=== PATIENT | female | born 1945 | race Caucasian/White ===

== ENCOUNTER 2017-06-19 10:56 | Outpatient (CLI) ==
--- NOTE | 2017-06-19 11:57 | DI ---
EXAM: Right shoulder three view HISTORY: Shoulder pain COMPARISON: None FINDINGS: The bones are normal. The glenohumeral joint and acromioclavicular joint are normal. No f ocal soft tissue abnormality. There is left-sided chest port terminating in superior vena cava, inco mpletely imaged IMPERSSION: Normal examination right shoulder.
== END 2017-06-19 10:57 | disposition home or self-care (01) ==
LOC: RAD 10:56
PROVIDERS: ATTEND Family Medicine
DX: M25.511 Pain in right shoulder (principal)

== ENCOUNTER 2017-10-29 09:30 | Outpatient (CLI) ==
--- NOTE | 2017-10-29 10:11 | DI ---
EXAM: Three views of the lumbar spine. History: Lower back pain. Findings: Atherosclerotic vascular calcifications. No acute fracture or subluxation. Moderate to s evere multilevel degenerative disc space narrowing with endplate sclerosis and osteophyte formation. Severe facet hypertrophy within lower lumbar spine. Impression: No acute osseous abnormality. Moderate to severe degenerative changes.
== END 2017-10-29 09:31 | disposition home or self-care (01) ==
LOC: RAD 09:30
PROVIDERS: ATTEND Family Medicine
DX: M15.9 Polyosteoarthritis, unspecified (principal); M54.5 Low back pain; G89.29 Other chronic pain

== ENCOUNTER 2017-11-17 07:08 | Day surgery (SDC) ==
[2017-11-17] MEDS ORDERED: LIDOCAINE 1% 20 ML MDV ID STA (08:18)
[2017-11-17] MEDS ORDERED: DIPRIVAN 20 ML VIAL IVP ONE (09:23)
[2017-11-17] MEDS ORDERED: VERSED ONE (09:23)
[2017-11-17 13:42] VITALS: BP 146/77; TEMP 97.6
--- NOTE | 2017-11-18 09:01 | OP ---
INDICATIONS FOR PROCEDURE: 72 year old female presents for colonoscopy exam. She has a past history of adenomatous polyps with last colonoscopy three years ago and her father had colon cancer at age 63. MEDICATIONS: SEE ANESTHESIA NOTES. PROCEDURE: COLONOSCOPY. REPORT: The risks, benefits, alternatives and limitations were discussed in detail with the patient. Informed consent was obtained. After adequate sedation was achieved, a digital rectal exam revealed good tone, no masses. The colonoscope was introduced into the rectum and advanced under direct visual guidance to the cecum. The cecum was identified by the appendiceal orifice and IC valve. I then slowly withdrew the scope in circumferential manner and examined the mucosa quite carefully. I looked on the proximal and distal sides of the folds and flexures as best as possible. I was able to retroflex the scope in the right colon and the left colon to increase visualization. In the cecum there are three small AVM's. In the sigmoid there are scattered small mouth diverticuli. No other abnormalities noted including on retroflex view of the anal canal. The prep was adequate. The withdraw time was 11 minutes and 3 seconds. The patient tolerated the procedure well with stable vital signs and pulse oximetry throughout. IMPRESSION: 1. Diverticulosis 2. Three cecal AVM's RECOMMENDATIONS: 1. High fiber diet 2. Office visit as needed 3. Colonoscopy examination again in 5 years if she is clinically well or sooner if there are signs or symptoms to indicate otherwise. CC: Dr. Darrell NUNEZ
== END 2017-11-17 11:05 | disposition home or self-care (01) ==
LOC: SURG 07:08
PROVIDERS: ATTEND Internal Medicine Gastroenterology
DX: Z86.010 Personal history of colon polyps (principal); Z80.0 Family history of malignant neoplasm of digestive organs; K57.30 Diverticulosis of large intestine without perforation or abscess without bleeding; Q27.33 Arteriovenous malformation of digestive system vessel

== ENCOUNTER 2018-01-18 14:16 | Outpatient (CLI) ==
--- NOTE | 2018-01-18 15:42 | DI ---
EXAM: Radiographs, right knee HISTORY: Acute right knee pain. COMPARISON: 12/14/2013. TECHNIQUE: Four views. FINDINGS: Transverse, minimally-displaced fracture through the mid pole of the patella noted. Anter ior soft tissue swelling and joint effusion are also present. No dislocation identified. Mild osteo arthritis noted throughout the knee. IMPRESSION: Minimally-displaced patellar fracture.
== END 2018-01-18 14:17 | disposition home or self-care (01) ==
LOC: RAD 14:16
PROVIDERS: ATTEND Family Medicine
DX: M25.561 Pain in right knee (principal)

== ENCOUNTER 2018-02-18 14:51 | Emergency (ER) ==
[2018-02-18 14:56] VITALS: TEMP 97.8; BMI 34.7
--- NOTE | 2018-02-18 16:18 | ED.PDOC ---
General ED Provider: Dr. MARLEN GARCIA Chief Complaint: Dizziness Stated Complaint: Developed dizziness last evening. Under considerable stress with her late husbands illness. last evening. This AM awakened and after a short time developed recurrent dizziness described as light headedness. States better now. Time Seen by Physician: 15:00 Mode of Arrival: Wheelchair Information Source: Patient Primary Care Provider: FRITZ CANNON Nursing and Triage Documentation Reviewed and Agree: Yes Reviewed sepsis parameters & appropriate labs ordered?: Yes System Inflammatory Response Syndrome: Not Applicable Sepsis Protocol: For patient's 13 years and over: Temp is 96.8 and below OR 101 and greater Pulse >90 BPM Resp >20/minute Acutely Altered Mental Status Are patient's symptoms suggestive of a new infection, such as: -Pneumonia -Skin, Soft Tissue -Endocarditis -UTI -Bone, Joint Infection -Implantable Device -Acute Abdominal Infection -Wound Infection -Meningitis -Blood Stream Catheter Infection -Unknown System Inflammatory Response Syndrome: Not Applicable Neurological Complaint Exam - Dizziness Complaint/Exam Onset: Sudden Duration: 12 hrs intermittently Symptoms Are: Still present (lessened and resolving.) Timing: Intermittent Episodes Lasting: Minutes Initial Severity: Moderate Current Severity: Mild Character: Reports: Head spinning, Lightheaded, Weak, Dizzy Aggravating: Reports: None Alleviating: Reports: Rest Associated Signs and Symptoms: Reports: Nausea. Denies: Palpitations, Unsteady gait, GI blood loss, Visual changes, Decreased oral intake, Change in medication , Change in diet, Loss of balance Cardiac Risk Factors: Reports: None Related Surgical History: Reports: None JVD Present: No Carotid Bruit Present: No Nystagmus Present: No Gag Reflex Present: Yes Meningeal Signs Positive: No Focal Weakness: Present: None Focal Sensory Loss: Present: None Gait: Normal [id number]: Normal Findings Romberg Test Positive: No Heel to Toe Normal: Yes [place]-Hallpike Test Positive: Yes Differential Diagnoses: Anxiety, Labyrinthitis Review of Systems - Review Of Systems Constitutional: Reports: Weakness Eyes: Reports: No symptoms Ears, Nose, Mouth, Throat: Reports: No symptoms Respiratory: Reports: No symptoms Cardiac: Reports: No symptoms, Lightheadedness GI: Reports: No symptoms : Reports: No symptoms Musculoskeletal: Reports: No symptoms Skin: Reports: No symptoms Neurological: Reports: No symptoms, Other (dizziness) Endocrine: Reports: No symptoms Hematologic/Lymphatic: Reports: No symptoms All Other Systems: Reviewed and Negative Past Medical History - Past Medical History Previously Healthy: Yes Endocrine: Reports: None Cardiovascular: Reports: None Respiratory: Reports: None Hematological: Reports: None Gastrointestinal: Reports: None Genitourinary: Reports: None Neuro/Psych: Reports: None Musculoskeletal: Reports: None Cancer: Reports: None Last Menstrual Period: n/a - Surgical History General Surgical History: Reports: None - Family History Family History: Reports: None - Social History Smoking Status: Former smoker Hx Substance Use: No Alcohol Screening: None Physical Exam - Physical Exam Appearance: Well-appearing, Obese Ill-appearing: Mild Pain Distress: None Eyes: DEWAYNE, EOMI, Conjunctiva clear ENT: Ears normal, Nose normal, Oropharynx normal Neck: Supple Respiratory: Airway patent, Breath sounds clear, Breath sounds equal Cardiovascular: RRR, Pulses normal, No rub, No murmur GI/: Soft, Nontender, No masses Musculoskeletal: Normal strength, ROM intact, No edema Skin: Warm, Dry, Normal color Neurological: Sensation intact, Alert, Oriented Psychiatric: Affect appropriate, Mood appropriate, Anxious Re-Evaluation - Re-Evaluation Time of Re-Evaluation: 18:30 Status: Improved Vital Signs Stable: Yes (BP improved) Appearance: NAD Lungs: Clear Skin: Warm and Dry Neuro: Alert and Oriented X3 CV: RRR Critical Care Note - Critical Care Note Total Time (mins): 0 Course - Course Hematology/Chemistry: 02/18/18 15:58 02/18/18 15:58 Orders, Labs, Meds: Lab Review 02/18/18 02/18/18 02/18/18 15:58 15:58 15:58 WBC 9.38 RBC 4.34 Hgb 13.9 Hct 39.6 MCV 91.2 MCH 32.0 H MCHC 35.1 RDW Coeff of Marcia 12.3 Plt Count 164 Immature Gran % (Auto) 0.3 Neut % (Auto) 72.4 Lymph % (Auto) 21.7 [place] % (Auto) 4.7 Eos % (Auto) 0.6 Baso % (Auto) 0.3 Immature Gran # (Auto) 0.0 Neut # (Auto) 6.8 Lymph # (Auto) 2.0 [place] # (Auto) 0.4 Eos # (Auto) 0.1 Baso # (Auto) 0.0 Sodium 142 Potassium 3.9 Chloride 104 Carbon Dioxide 29 Anion Gap 12.9 BUN 11 Creatinine 0.64 Estimated GFR (MDRD) 90.00 BUN/Creatinine Ratio 17.18 Glucose 148 H Calcium 9.4 Magnesium 1.9 Total Bilirubin 0.4 AST 28 ALT 14 Alkaline Phosphatase 94 Total Creatine Kinase 41 Troponin I < 0.0100 Total Protein 6.7 Albumin 3.9 Globulin 2.8 Albumin/Globulin Ratio 1.39 Urine Color Urine Clarity Urine pH Ur Specific [place] Urine Protein Urine Glucose (UA) Urine Ketones Urine Blood Urine Nitrite Urine Bilirubin Urine Urobilinogen Ur Leukocyte Esterase Urine Microscopic WBC Ur Squamous Epith Cells 02/18/18 16:13 WBC RBC Hgb Hct MCV MCH MCHC RDW Coeff of [place] Plt Count Immature Gran % (Auto) Neut % (Auto) Lymph % (Auto) [place] % (Auto) Eos % (Auto) Baso % (Auto) Immature Gran # (Auto) Neut # (Auto) Lymph # (Auto) [place] # (Auto) Eos # (Auto) Baso # (Auto) Sodium Potassium Chloride Carbon Dioxide Anion Gap BUN Creatinine Estimated GFR (MDRD) BUN/Creatinine Ratio Glucose Calcium Magnesium Total Bilirubin AST ALT Alkaline Phosphatase Total Creatine Kinase Troponin I Total Protein Albumin Globulin Albumin/Globulin Ratio Urine Color Yellow Urine Clarity Clear Urine pH 7.0 Ur Specific [place] 1.015 Urine Protein Negative Urine Glucose (UA) Negative Urine Ketones Negative Urine Blood Negative Urine Nitrite Negative Urine Bilirubin Negative Urine Urobilinogen 0.2 Ur Leukocyte Esterase Trace Urine Microscopic WBC 0-2 Ur Squamous Epith Cells 0-2 Orders Category Date Time Status EKG-(ED ONLY) Stat CARDIO 02/18/18 15:34 Completed CBC W/ AUTO DIFF Stat LAB 02/18/18 15:58 Completed CMP [COMPREHENSIVE METABOLIC PANEL] Stat LAB 02/18/18 15:58 Completed CPK [CREATINE KINASE] Stat LAB 02/18/18 15:58 Completed MAGNESIUM Stat LAB 02/18/18 15:58 Completed TROPONIN I Stat LAB 02/18/18 15:58 Completed UA [URINALYSIS C & S IF INDICATED] Stat LAB 02/18/18 16:13 Completed CHEST, 2 VIEWS PA & LAT Stat RADS 02/18/18 15:[address] HEAD W/O CONTRAST Stat RADS 02/18/18 15:35 Completed Vital Signs: Temp Pulse Resp BP Pulse Ox 02/18/18 14:51 97.8 F 58 L 16 170/80 H 96 Departure - Departure Time of Disposition: 18:30 Disposition: HOME SELF-CARE Discharge Problem: Dizziness, Hypertension Instructions: Motion Sickness (ED), Hypertension (ED) Condition: Good Pt referred to PMD for follow-up: Yes IPMP verified?: No Additional Instructions: Monitor BP at Home Take all meds as directed Follow up PCP in 5-7 days Allergies/Adverse Reactions: Allergies No Known Allergies Allergy (Unverified 08/14/14 12:50) Home Medications: Ambulatory Orders Oxybutynin Chloride [Ditropan Xl] 1 tab PO BID 08/28/14
--- NOTE | 2018-02-18 16:36 | DI ---
EXAM: Two-view chest. HISTORY: Dizziness. COMPARISON: 11/08/2015 FINDINGS: PA and lateral views of the chest. LUNGS: The lung volumes are normal. There is a left-sided chest port. Clips are seen in the left sol e of the chest. There is no lobar consolidation or effusion. The pulmonary interstitium is normal. T here are no suspicious nodules. MEDIASTINUM: The heart size and pulmonary vasculature are within normal limits. The aorta is tortu ous and calcified. OSSEOUS STRUCTURES: The osseous structures show mild degenerative changes consistent with age. The so ft tissues are unremarkable. IMPRESSION: No acute pulmonary disease.
--- NOTE | 2018-02-18 16:37 | CT ---
EXAM: CT head without contrast HISTORY: Dizziness COMPARISON: None TECHNIQUE: Serial axial images of the brain were obtained from the skull base to the vertex without IV contrast. FINDINGS: The ventricles, cisterns and sulci demonstrate generalized volume loss. The rodriguez-white ma tter junction is maintained. There is scattered low attenuation throughout the periventricular white matter.No midline shift or mass is identified. There is no abnormal intra or extra-axial fluid loretta ection. The paranasal sinuses and mastoid air cells are clear. The osseous calvarium is intact. IMPRESSION: 1. Intracranial abnormality or hemorrhage. 2. Generalized volume loss with extensive low attenuation throughout the periventricular white matte r suggestive of microangiopathy. If further evaluation is clinically indicated, MRI may be obtained.
[2018-02-18] MEDS ORDERED: ZESTRIL PO STA (18:52)
[2018-02-18 19:46] VITALS: BP 190/90
== END 2018-02-18 20:31 | disposition home or self-care (01) ==
LOC: ED 14:51
DX: R42 Dizziness and giddiness (principal); I10 Essential (primary) hypertension; R53.1 Weakness
CPT/HCPCS: 36415; 80053; 81001; 82550; 83735; 84484; 85025; 93005; 93010; 99284

== ENCOUNTER 2022-02-15 16:20 | Inpatient (IN) ==
[2022-02-15] MEDS ORDERED: DUONEB NEB ONE (17:03)
[2022-02-15] MEDS ORDERED: SOLU-MEDROL 125 MG IVP ONE (17:03)
[2022-02-15] MEDS ORDERED: SODIUM CHLORIDE 500 ML IV STA (17:03)
[2022-02-15 17:31] LABS: BASOPHILS # (AUTO) 0.1 K/uL (0-0.2); BASOPHILS % (AUTO) 0.3 % (0.0-3.0); EOSINOPHILS # (AUTO) 0.2 K/ul (0.0-0.7); EOSINOPHILS % (AUTO) 1.3 % (0.0-7.0); HEMATOCRIT 36.4 % (37.0-47.0); HEMOGLOBIN 12.7 g/dl (12.0-16.0); IMMATURE GRANULOCYTE # (AUTO) 0.1 (0.0-1.0); IMMATURE GRANULOCYTE % (AUTO) 0.7 % (0.0-5.0); LYMPHOCYTES # (AUTO) 1.6 K/uL (0.60-3.4); MEAN CORPUSCULAR HEMOGLOBIN 30.5 pg (27.0-31.0); MEAN CORPUSCULAR HGB CONC 34.9 (31.8-35.4); MEAN CORPUSCULAR VOLUME 87.5 fl (81.0-99.0); MONOCYTES # (AUTO) 1.3 K/uL (0.4-2.0); NEUTROPHILS # (AUTO) 13.1 K/ul (2.0-6.9); NEUTROPHILS % (AUTO) 79.7 % (42.2-75.2); PLATELET COUNT 187 10^3/uL (140-440); RDW COEFFICIENT OF VARIATION 13.1 % (11.6-14.8); RED BLOOD COUNT 4.16 10^6/ul (4.20-5.40); WHITE BLOOD COUNT 16.46 K/ul (4.6-10.2)
--- NOTE | 2022-02-15 17:42 | CT ---
EXAM: CT scan chest without contrast HISTORY: Shortness by COMPARISON: None. FINDINGS: Helically acquired axial images obtained through the thorax utilizing 5-mm collimation. S agittal and coronal reconstructions were imaged and reviewed... There are bilateral breast implants. There is a left-sided chest port. The ascending aorta is ectatic measuring 3.4 cm. The heart is n ormal in size with coronary artery calcification. There is calcification of mitral valve.. There ar e subcentimeter pretracheal lymph nodes. There is atelectasis versus scarring within the inferior li ngular segment. Focus of ground-glass opacity medially within the left upper lobe which may represen t pneumonia. 2 mm subpleural nodule anteriorly at the left lung base. Right basilar atelectasis candido jessi pneumonia.. Small focus of ground-glass opacity posteriorly within the right upper lobe.. Peribr onchovascular thickening/infiltrate is noted bilaterally right greater than left suggesting infection . Scattered tree-in-bud configuration is seen in right upper lobe suggesting bronchiolitis. Bone wi ndows reveals no evidence of lytic or blastic lesions. IMPRESSION: Coronary ASVD. Findings suggest peribronchial pneumonia right greater than left. Tree-in-bud configuration right upper lobe. Ground-glass infiltrates in both upper lobes All CT scans are performed using dose optimization techniques as appropriate to the performed exam an d include at least one of the following: Automated exposure control, adjustment of the mA and/or kV according t o size, and the use of iterative reconstruction technique.
[2022-02-15 17:49] LABS: ALANINE AMINOTRANSFERASE 18.5 U/L (0-35); ALBUMIN 4.02 g/dL (3.5-5.0); ALKALINE PHOSPHATASE 127.2 U/L (53-141); BILIRUBIN,TOTAL 0.66 mg/dL (0.2-1.3); BLOOD UREA NITROGEN 20.1 mg/dL (7-17); CARBON DIOXIDE 23.7 mmol/L (22-30.0); CHLORIDE 99.4 mmol/L (98-107); CREATININE 0.97 mg/dL (0.60-1.30); GLUCOSE 146.4 mg/dL (74-106); POTASSIUM 3.59 mmol/L (3.5-5.1); SODIUM 132.4 mmol/L (134.5-145); TOTAL PROTEIN 7.17 g/dL (6.3-8.2)
[2022-02-15] MEDS ORDERED: ZITHROMAX PO ONE (17:54)
[2022-02-15] MEDS ORDERED: ROCEPHIN 1 GM/50 ML D5W 1 GM/50 ML BAG IV ONE (17:54)
[2022-02-15 18:00] LABS: MOLECULAR FLU A NEGATIVE BY NAAT (NEGATIVE); MOLECULAR FLU B NEGATIVE BY NAAT (NEGATIVE)
[2022-02-15 18:02] LABS: TROPONIN I < 0.012 ng/ml (0.0000-0.120)
[2022-02-15 18:54] LABS: ABG O2 HGB 93.3 % (95-100); ABG PH 7.48 (7.35-7.45); BEecf 1.1 (-2.0-3.0); COHb 1.8 (0.5-1.5); HCO3 24.6 (21-28); MetHb 1.3 (0-1.5); TCO2 25.6 (19-24); sO2 95.4 % (94-98); tHb 12.7 g/dl (11.7-17.4)
--- NOTE | 2022-02-15 19:58 | CT ---
Exam: CT angiography of the chest History: Pneumonia, shortness of breath Technique: [address] of the chest utilizing CT angiography protocol. Multiplanar and max imum intensity projection reformations were performed. FINDINGS: Technically adequate for evaluation of pulmonary arteries and aorta. There are no pulmona ry artery filling defects. Atherosclerotic calcification of the aorta without aneurysm or dissection . Bilateral hilar lymph node prominence. Lung windows show minor nodular infiltrates and some bronc hial wall thickening of the right lower lobe and right middle lobe and basilar left upper lobe. Foca l ground-glass infiltrate of the apical left upper lobe. Mediastinal lymph nodes are abundant but chaparro b pathologic by size. Bilateral breast prosthesis. No acute chest wall abnormality is seen. Impression: 1. No evidence of pulmonary artery thrombus 2. Right greater than left lung base nodular infiltrates and bronchial wall thickening. Also, a foc al left upper lobe ground-glass infiltrate. The findings favor pneumonitis. All CT scans are performed using dose optimization techniques as appropriate to the performed exam an d include at least one of the following: Automated exposure control, adjustment of the mA and/or kV according t o size, and the use of iterative reconstruction technique.
--- NOTE | 2022-02-15 20:54 | ED.PDOC ---
General ED Provider: Dr. ALDO SARABIA Chief Complaint: Cough Time Seen by Provider: 02/15/22 16:24 Mode of Arrival: Walk-In Information Source: Patient Primary Care Provider: FRITZ RAMÍREZ Sepsis Protocol: For patient's 13 years and over: Temp is 96.8 and below OR 101 and greater Pulse >90 BPM Resp >20/minute Acutely Altered Mental Status Are patient's symptoms suggestive of a new infection, such as: -Pneumonia -Skin, Soft Tissue -Endocarditis -UTI -Bone, Joint Infection -Implantable Device -Acute Abdominal Infection -Wound Infection -Meningitis -Blood Stream Catheter Infection -Unknown [facility] Medical History Cancer of breast Hypertension No known health problems Family History FATHER Colorectal cancer, Onset Age: 60 AUNT Breast cancer Social History Smoking and tobacco status: Former smoker Passive smoking exposure: No How long ago did patient quit smokin years ago Second hand smoke exposure: No Surgical History Status post appendectomy Female Reproductive History Menstrual Hx Hysterectomy: No Hx Tubal Ligation: No Course Course Hematology/Chemistry: 02/18/22 04:48 02/18/22 04:48 Orders, Labs, Meds: Lab Review 02/15/22 02/15/22 02/15/22 17:24 17:24 17:24 WBC 16.46 H RBC 4.16 L Hgb 12.7 Hct 36.4 L MCV 87.5 MCH 30.5 MCHC 34.9 RDW Coeff of Marcia 13.1 Plt Count 187 Immature Gran % (Auto) 0.7 Neut % (Auto) 79.7 H Lymph % (Auto) 10.0 [place] % (Auto) 8.0 Eos % (Auto) 1.3 Baso % (Auto) 0.3 Neut # (Auto) 13.1 H Lymph # (Auto) 1.6 [place] # (Auto) 1.3 Eos # (Auto) 0.2 Baso # (Auto) 0.1 Immature Gran # (Auto) 0.1 Puncture Site Base Excess O2 Saturation ABG pH ABG pCO2 ABG pO2 ABG HCO3 ABG Total CO2 Uvaldo Test Hemoglobin Oxyhemoglobin Carboxyhemoglobin Total Hemoglobin O2 Delivery Device Oxygen Liter Flow FiO2 % Sodium 132.4 L Potassium 3.59 Chloride 99.4 Carbon Dioxide 23.7 Anion Gap 12.89 BUN 20.1 H Creatinine 0.97 Estimated GFR (MDRD) 55.00 BUN/Creatinine Ratio 20.72 Glucose 146.4 H Lactic Acid 1.24 Calcium 8.70 Total Bilirubin 0.66 AST 53.0 H ALT 18.5 Alkaline Phosphatase 127.2 Troponin I < 0.012 NT-Pro-B Natriuret Pep 260.000 Total Protein 7.17 Albumin 4.02 Globulin 3.15 Albumin/Globulin Ratio 1.27 Procalcitonin D-Dimer Urine Color Urine Clarity Urine pH Ur Specific Prim Urine Protein Urine Glucose (UA) Urine Ketones Urine Blood Urine Nitrite Urine Bilirubin Urine Urobilinogen Ur Leukocyte Esterase Urine Microscopic WBC Ur Squamous Epith Cells Urine Bacteria Adenovirus (PCR) B. pertussis DNA (PCR) B.parapertussis DNA PCR C. pneumoniae DNA (PCR) Coronavirus OC43 (PCR) Coronavirus HKU1 (PCR) Coronavirus 229E (PCR) Coronavirus NL63 (PCR) Human Metapneumovir PCR Influenza Type A (PCR) Influ A Molecular Assay Influenza B (RT-PCR) Influ B Molecular Assay M. pneumoniae (PCR) Parainfluenza 1 (PCR) Parainfluenza 2 (PCR) Parainfluenza 3 (PCR) Parainfluenza 4 (PCR) RSV (PCR) Entero/Rhino (PCR) SARS-CoV-2 (PCR) 02/15/22 02/15/22 02/15/22 17:24 17:30 18:30 WBC RBC Hgb Hct MCV MCH MCHC RDW Coeff of Marcia Plt Count Immature Gran % (Auto) Neut % (Auto) Lymph % (Auto) [place] % (Auto) Eos % (Auto) Baso % (Auto) Neut # (Auto) Lymph # (Auto) [place] # (Auto) Eos # (Auto) Baso # (Auto) Immature Gran # (Auto) Puncture Site Base Excess O2 Saturation ABG pH ABG pCO2 ABG pO2 ABG HCO3 ABG Total CO2 Uvaldo Test Hemoglobin Oxyhemoglobin Carboxyhemoglobin Total Hemoglobin O2 Delivery Device Oxygen Liter Flow FiO2 % Sodium Potassium Chloride Carbon Dioxide Anion Gap BUN Creatinine Estimated GFR (MDRD) BUN/Creatinine Ratio Glucose Lactic Acid Calcium Total Bilirubin AST ALT Alkaline Phosphatase Troponin I NT-Pro-B Natriuret Pep Total Protein Albumin Globulin Albumin/Globulin Ratio Procalcitonin 0.14 H D-Dimer 1633.46 H Urine Color Urine Clarity Urine pH Ur Specific Prim Urine Protein Urine Glucose (UA) Urine Ketones Urine Blood Urine Nitrite Urine Bilirubin Urine Urobilinogen Ur Leukocyte Esterase Urine Microscopic WBC Ur Squamous Epith Cells Urine Bacteria Adenovirus (PCR) B. pertussis DNA (PCR) B.parapertussis DNA PCR C. pneumoniae DNA (PCR) Coronavirus OC43 (PCR) Coronavirus HKU1 (PCR) Coronavirus 229E (PCR) Coronavirus NL63 (PCR) Human Metapneumovir PCR Influenza Type A (PCR) Influ A Molecular Assay Negative by naat Influenza B (RT-PCR) Influ B Molecular Assay Negative by naat M. pneumoniae (PCR) Parainfluenza 1 (PCR) Parainfluenza 2 (PCR) Parainfluenza 3 (PCR) Parainfluenza 4 (PCR) RSV (PCR) Entero/Rhino (PCR) SARS-CoV-2 (PCR) 02/15/22 02/15/22 02/15/22 18:45 20:00 23:23 WBC RBC Hgb Hct MCV MCH MCHC RDW Coeff of Marcia Plt Count Immature Gran % (Auto) Neut % (Auto) Lymph % (Auto) [place] % (Auto) Eos % (Auto) Baso % (Auto) Neut # (Auto) Lymph # (Auto) [place] # (Auto) Eos # (Auto) Baso # (Auto) Immature Gran # (Auto) Puncture Site Rr Base Excess 1.1 O2 Saturation 95.4 ABG pH 7.48 H ABG pCO2 33.0 L ABG pO2 72.0 L ABG HCO3 24.6 ABG Total CO2 25.6 H Uvaldo Test + Hemoglobin 1.3 Oxyhemoglobin 93.3 L Carboxyhemoglobin 1.8 H Total Hemoglobin 12.7 O2 Delivery Device Oxygen Liter Flow 2.00 FiO2 % 28.0 Sodium Potassium Chloride Carbon Dioxide Anion Gap BUN Creatinine Estimated GFR (MDRD) BUN/Creatinine Ratio Glucose Lactic Acid Calcium Total Bilirubin AST ALT Alkaline Phosphatase Troponin I NT-Pro-B Natriuret Pep Total Protein Albumin Globulin Albumin/Globulin Ratio Procalcitonin D-Dimer Urine Color Yellow Urine Clarity Clear Urine pH 5.5 Ur Specific Prim <=1.005 Urine Protein Negative Urine Glucose (UA) Negative Urine Ketones Negative Urine Blood Negative Urine Nitrite Negative Urine Bilirubin Negative Urine Urobilinogen 0.2 Ur Leukocyte Esterase Trace H Urine Microscopic WBC 0-2 Ur Squamous Epith Cells 5-10 Urine Bacteria Trace Adenovirus (PCR) Not detected B. pertussis DNA (PCR) Not detected B.parapertussis DNA PCR Not detected C. pneumoniae DNA (PCR) Not detected Coronavirus OC43 (PCR) Not detected Coronavirus HKU1 (PCR) Not detected Coronavirus 229E (PCR) Not detected Coronavirus NL63 (PCR) Not detected Human Metapneumovir PCR Not detected Influenza Type A (PCR) Not detected Influ A Molecular Assay Influenza B (RT-PCR) Not detected Influ B Molecular Assay M. pneumoniae (PCR) Not detected Parainfluenza 1 (PCR) Not detected Parainfluenza 2 (PCR) Not detected Parainfluenza 3 (PCR) Not detected Parainfluenza 4 (PCR) Not detected RSV (PCR) Not detected Entero/Rhino (PCR) Not detected SARS-CoV-2 (PCR) Not detected 02/15/22 23:39 WBC RBC Hgb Hct MCV MCH MCHC RDW Coeff of Marcia Plt Count Immature Gran % (Auto) Neut % (Auto) Lymph % (Auto) [place] % (Auto) Eos % (Auto) Baso % (Auto) Neut # (Auto) Lymph # (Auto) [place] # (Auto) Eos # (Auto) Baso # (Auto) Immature Gran # (Auto) Puncture Site Rb Base Excess 1.6 O2 Saturation 98.1 H ABG pH 7.44 ABG pCO2 38.0 ABG pO2 102.0 H ABG HCO3 25.8 ABG Total CO2 27 H Uvaldo Test + Hemoglobin 1.0 Oxyhemoglobin 95.9 Carboxyhemoglobin 1.5 Total Hemoglobin 12.3 O2 Delivery Device Bnc Oxygen Liter Flow 3.00 FiO2 % 32.0 Sodium Potassium Chloride Carbon Dioxide Anion Gap BUN Creatinine Estimated GFR (MDRD) BUN/Creatinine Ratio Glucose Lactic Acid Calcium Total Bilirubin AST ALT Alkaline Phosphatase Troponin I NT-Pro-B Natriuret Pep Total Protein Albumin Globulin Albumin/Globulin Ratio Procalcitonin D-Dimer Urine Color Urine Clarity Urine pH Ur Specific Prim Urine Protein Urine Glucose (UA) Urine Ketones Urine Blood Urine Nitrite Urine Bilirubin Urine Urobilinogen Ur Leukocyte Esterase Urine Microscopic WBC Ur Squamous Epith Cells Urine Bacteria Adenovirus (PCR) B. pertussis DNA (PCR) B.parapertussis DNA PCR C. pneumoniae DNA (PCR) Coronavirus OC43 (PCR) Coronavirus HKU1 (PCR) Coronavirus 229E (PCR) Coronavirus NL63 (PCR) Human Metapneumovir PCR Influenza Type A (PCR) Influ A Molecular Assay Influenza B (RT-PCR) Influ B Molecular Assay M. pneumoniae (PCR) Parainfluenza 1 (PCR) Parainfluenza 2 (PCR) Parainfluenza 3 (PCR) Parainfluenza 4 (PCR) RSV (PCR) Entero/Rhino (PCR) SARS-CoV-2 (PCR) Orders Category Date Time Status ABG DRAW REQUEST Stat CARDIO 02/15/22 17:05 Completed EKG-(ED ONLY) Stat CARDIO 02/15/22 17:03 Completed OXYGEN Routine CARDIO 02/15/22 23:39 Completed SPUTUM INDUCTION PRN CARDIO 02/15/22 23:45 Completed ACTIVITY .BR with BRP CARE 02/15/22 23:40 Completed GIVE HS SNACK 2100 CARE 02/15/22 23:40 Completed INTAKE & OUTPUT Q8HR CARE 02/15/22 23:39 Completed NPO REMINDER: IMAGING ONCE CARE 02/15/22 18:14 Completed REMINDER: Notify Provider if temp >101.5 PRN CARE 02/15/22 23:39 Completed REMINDER:Breath Sounds&Sputum Production BID CARE 02/15/22 23:39 Completed REMINDER:Notify Provider Pulse<60 or>130 PRN CARE 02/15/22 23:39 Completed REMINDER:Notify if BP<90/60 or >170/110 PRN CARE 02/15/22 23:39 Completed VITAL SIGNS Q8HR CARE 02/15/22 23:39 Completed ADA 1800 BISI. DIET DIETARY 02/15/22 Breakfast Completed HS SNACK DIETARY 02/15/22 Dinner Completed [place] [ED IV/MEDIPORT/POWERPORT] .ONCE EMERGENCY 02/15/22 17:03 C ompleted ABG COOX Stat LAB 02/15/22 18:45 Completed ABG COOX Stat LAB 02/15/22 23:39 Completed BLOOD CULTURE (ED ONLY) Stat LAB 02/15/22 17:34 Completed CBC W/ AUTO DIFF Stat LAB 02/15/22 17:24 Completed CBC W/ AUTO DIFF Stat LAB 02/16/22 04:51 Completed COMPREHENSIVE METABOLIC PANEL Stat LAB 02/15/22 17:24 Completed D-DIMER Stat LAB 02/15/22 17:24 Completed FLU A & B MOLECULAR [FLU A/B MOLECULAR] Stat LAB 02/15/22 17:30 Completed LACTIC ACID Stat LAB 02/15/22 17:24 Completed MOLECULAR GROUP A STREP Stat LAB 02/15/22 17:30 Completed NT-PROBNP Stat LAB 02/15/22 17:24 Completed PROCALCITONIN Stat LAB 02/15/22 18:30 Completed RESPIRATORY PANEL 2.1 (PCR) Stat LAB 02/15/22 20:00 Completed SPUTUM CULTURE Stat LAB 02/15/22 23:39 Completed TROPONIN I Stat LAB 02/15/22 17:24 Completed URINALYSIS C & S IF INDICATED Stat LAB 02/15/22 23:23 Completed 0.9 % Sodium Chloride [Saline Flush] MEDS 02/15/22 17:03 Discontinued 1 syr IVF PRN PRN Azithromycin [Zithromax] MEDS 02/15/22 17:54 Discontinued 500 mg PO ONCE ONE Ceftriaxone/D5w 1 gm Premix [Rocephin 1 gm/50 ml D5w] MEDS 02/15/22 17:54 Discontinued 1 gm in 50 ml IV ONCE Ipratropium/Albuterol Neb [Duoneb] MEDS 02/15/22 17:03 Discontinued 3 ml NEB ONCE ONE Methylprednisolone Sod Succ/Pf [Solu-Medrol 125 mg] MEDS 02/15/22 17:03 Discontinued 125 mg IVP ONCE ONE Sodium Chloride 0.9% [Sodium Chloride] 1,000 ml MEDS 02/15/22 23:45 Dis continued IV 30 mls/hr Sodium Chloride 0.9% [Sodium Chloride] 500 ml MEDS 02/15/22 17:03 Discontinued IV 125 mls/hr CT CHEST PE PROTOCOL Stat RADS 02/15/22 18:[address] CHEST W/O CONTRAST Stat RADS 02/15/22 17:03 Completed Medications Discontinued Medications Generic Name Dose Route Start Last Admin Trade Name Freq PRN Reason Stop Dose Admin Albuterol/Ipratropium 3 ml 02/15/22 17:03 02/15/22 18:28 Ipratropium/Albuterol Vial.Neb NEB 02/15/22 17:04 3 ml ONCE ONE Administration Albuterol/Ipratropium 3 ml 02/16/22 12:00 02/18/22 11:06 Ipratropium/Albuterol Vial.Neb NEB 3 ml RTQ6H SARAH Administration Azithromycin 500 mg 02/15/22 17:54 02/15/22 18:13 Azithromycin 250 Mg Tablet PO 02/15/22 17:55 500 mg ONCE ONE Administration Benzocaine/Menthol 1 lozenge 02/16/22 12:02 02/16/22 12:46 Benzocaine/Menth/Cetylpyrd Cl 1 Lozenge [id number] 1 lozenge PRN PRN Administration SORE THROAT Enoxaparin Sodium 40 mg 02/16/22 09:00 02/18/22 09:14 Enoxaparin Sodium 40 Mg/0.4 Ml Syr SUBCUT 40 mg DAILY SARAH Administration Sodium Chloride 500 mls @ 125 mls/hr 02/15/22 17:03 02/15/22 22:01 Sodium Chloride IV 02/15/22 21:02 Not Given .Q4H STA CEFTRIAXONE/D5W 1 GM PREMIX 1 gm in 50 mls @ 75 mls/hr 02/15/22 17:54 02/15/22 18:13 Rocephin 1 Gm/50 Ml D5w IV 02/15/22 18:33 75 mls/hr ONCE ONE Administration Sodium Chloride 1,000 mls @ 30 mls/hr 02/15/22 23:45 02/17/22 10:10 Sodium Chloride IV 30 mls/hr .[id number] SARAH Administration CEFTRIAXONE/D5W 1 GM PREMIX 1 gm in 50 mls @ 75 mls/hr 02/16/22 09:00 02/18/22 09:15 Rocephin 1 Gm/50 Ml D5w IV 02/19/22 08:59 75 mls/hr DAILY SARAH Administration Azithromycin 500 mg/ Sodium 250 mls @ 125 mls/hr 02/16/22 09:00 02/17/22 10:08 Chloride IV 02/17/22 10:59 125 mls/hr DAILY SARAH Administration Insulin Human Regular 0 unit 02/16/22 11:08 02/18/22 11:58 Insulin Regular, Human 100 Unit/Ml (3ml) Vial SUBCUT 2 unit PRN PRN Administration Hyperglycemia Protocol Ipratropium [place] 2.5 ml 02/16/22 00:00 02/16/22 04:55 Ipratropium [place] 0.02% Vial.Neb NEB 2.5 ml RTQ6H SARAH Administration Lisinopril 10 mg 02/16/22 09:00 02/18/22 09:14 Lisinopril 10 Mg Tablet PO 10 mg DAILY SARAH Administration Methylprednisolone 4 mg 02/16/22 13:00 02/18/22 13:26 Methylprednisolone 4 Mg Tab.Ds.Pk PO 02/21/22 09:59 4 mg 1800 SARAH Administration Taper Methylprednisolone Sodium Succinate 125 mg 02/15/22 17:03 02/15/22 17:20 Methylprednisolone Sod Succ/Pf 125 Mg/2 Ml Vial IVP 02/15/22 17:04 125 mg ONCE ONE Administration Omeprazole 20 mg 02/16/22 06:30 02/18/22 05:48 Omeprazole 20 Mg Capsule. PO 20 mg QDAC SARAH Administration Sodium Chloride 1 syr 02/15/22 17:03 0.9% Sodium Chloride 10 Ml Disp.Syrin IVF PRN PRN To flush IV Vital Signs: Temp Pulse Resp BP Pulse Ox 02/15/22 16:22 99 F 76 19 148/78 H 89 L Discharge Plan Discharge Patient Disposition: ADMITTED INPATIENT Discharge Problem: Pneumonia ED Provider: ALDO SARABIA Condition: Good Physician Progress Note: [Report from Dr Serrano awaiting CTA. For evaluation , results , treatment prior to shift change please see Dr Lindsey notes Plan admit to Dr Ramírez. Need covid prior to admission. Dept busy. Covid testing delayed - dept busy pt ambulatory to [facility] / watching TV Nursing and ED physician working to clear beds and several high maintance patients Covid test delayed and unable tyo admit till results ready Pt was treated with CAP antibiotics CTA reviewed Covid reviewed - neg Rechecked with Pt Dr Ramírez noticied of CTA and Covid results Pt doing well Pt admitted
[2022-02-15 21:30] LABS: ADENOVIRUS (PCR) NOT DETECTED (NOT DETECT); BORDETELLA PARAPERTUSSIS (PCR) NOT DETECTED (NOT DETECT); BORDETELLA PERTUSSIS (PCR) NOT DETECTED (NOT DETECT); CHLAMYDIA PNEUMONIAE (PCR) NOT DETECTED (NOT DETECT); CORONAVIRUS 229E (PCR) NOT DETECTED (NOT DETECT); CORONAVIRUS HKU1 (PCR) NOT DETECTED (NOT DETECT); CORONAVIRUS NL63 (PCR) NOT DETECTED (NOT DETECT); CORONAVIRUS OC43 (PCR) NOT DETECTED (NOT DETECT); HUMAN METAPNEUMOVIRUS (PCR) NOT DETECTED (NOT DETECT); HUMAN RHINOVIRUS/ENTEROV (PCR) NOT DETECTED (NOT DETECT); INFLUENZA B (PCR) NOT DETECTED (NOT DETECT); MYCOPLASMA PNEUMONIAE (PCR) NOT DETECTED (NOT DETECT); PARAINFLUENZA VIRUS 1 (PCR) NOT DETECTED (NOT DETECT); PARAINFLUENZA VIRUS 2 (PCR) NOT DETECTED (NOT DETECT); PARAINFLUENZA VIRUS 3 (PCR) NOT DETECTED (NOT DETECT); PARAINFLUENZA VIRUS 4 (PCR) NOT DETECTED (NOT DETECT); RESPIRATORY SYNCYTIAL V (PCR) NOT DETECTED (NOT DETECT); SARS_COV_2 (PCR) NOT DETECTED (NOT DETECT)
[2022-02-15 23:34] LABS: BILIRUBIN,URINE Negative (NEGATIVE); CLARITY,URINE Clear (CLEAR); COLOR,URINE Yellow (YELLOW); GLUCOSE, URINE (UA) Negative (NEGATIVE); KETONES,URINE Negative (NEGATIVE); LEUKOCYTE ESTERASE ,URINE Trace (NEGATIVE); NITRITE,URINE Negative (NEGATIVE); PH,URINE 5.5 (5-9); PROTEIN,URINE Negative (NEGATIVE); URINE, BLOOD Negative (NEGATIVE); UROBILINOGEN,URINE 0.2 (0.2)
[2022-02-15 23:37] LABS: BACTERIA,URINE TRACE (NOT PRESENT); URINE WBC, MICROSCOPIC 0-2 (0-2)
[2022-02-16 00:35] VITALS: BMI 34.3
[2022-02-16] MEDS: ATROVENT 0.02% NEB NEB SCH ×2 (00:35→04:55)
--- NOTE | 2022-02-16 00:35 | ED.PDOC ---
General ED Provider: Dr. DESTINI PASCAL MD Chief Complaint: Cough Stated Complaint: cough, mild SOB and generalized bodyaches x 3 days. Time Seen by Provider: 02/15/22 16:24 Mode of Arrival: Walk-In Information Source: Patient Exam Limitations: No limitations Primary Care Provider: FRITZ RAMÍREZ Nursing and Triage Documentation Reviewed and Agree: Yes Does patient meet sepsis criteria?: No If yes, has appropriate treatment been initiated?: No System Inflammatory Response Syndrome: Not Applicable Sepsis Protocol: For patient's 13 years and over: Temp is 96.8 and below OR 101 and greater Pulse >90 BPM Resp >20/minute Acutely Altered Mental Status Are patient's symptoms suggestive of a new infection, such as: -Pneumonia -Skin, Soft Tissue -Endocarditis -UTI -Bone, Joint Infection -Implantable Device -Acute Abdominal Infection -Wound Infection -Meningitis -Blood Stream Catheter Infection -Unknown Respiratory Complaint Exam Respiratory Complaint/Exam Onset/Duration: 3 days Symptoms Are: Still present Timing: Constant Initial Severity: Mild Current Severity: Moderate Location: Chest Character: Reports Productive cough Aggravating: Reports None Alleviating: Reports None Associated Signs and Symptoms: Reports URI and Nasal congestion History of Healthcare-Acquired Pneumonia: No Home Oxygen Use: No Recent Stress Test: No Respiratory Distress: Mild Inadequate Respiratory Effort: No Dysphagia Present: No Stridor Present: No JVD Present: No Differential Diagnoses: COPD Exacerbation, Pneumonia, Bronchitis, URI, Influenza and Lower Resp. Infection Review of Systems Review Of Systems Constitutional: Reports Fever Respiratory: Reports Short of air All Other Systems: Reviewed and Negative [facility] Medical History Cancer of breast Hypertension No known health problems Family History FATHER Colorectal cancer, Onset Age: 60 AUNT Breast cancer Social History Smoking and tobacco status: Former smoker Passive smoking exposure: No How long ago did patient quit smokin years ago Second hand smoke exposure: No Surgical History Status post appendectomy Female Reproductive History Menstrual Hx Hysterectomy: No Hx Tubal Ligation: No Physical Exam Physical Exam Appearance: Reports Ill-appearing and Obese Ill-appearing: Mild Pain Distress: None Eyes: Reports DEWAYNE, EOMI and Conjunctiva clear ENT: Reports Ears normal, Nose normal and Erythema (mild oropharynx.) Neck: Supple Respiratory: Reports Airway patent Cardiovascular: Reports RRR, Pulses normal and No murmur GI/: Reports Soft, Nontender, No masses and Bowel sounds normal Musculoskeletal: Reports Normal strength, ROM intact and No calf tenderness Skin: Reports Warm, Dry and Normal color Neurological: Reports Sensation intact, Motor intact, Reflexes intact, Cranial nerves intact and Oriented Psychiatric: Reports Affect appropriate Interpretation Radiology Interpretation Radiology Interpretation By: Radiologist Radiology Results: Positive Exam Interpreted: CT Scan Xray Comments: See the report. Re-Evaluation Re-Evaluation Time of Re-Evaluation: 17:20 Status: Improved Vital Signs Stable: Yes Pain Level: 2 Appearance: NAD Lungs: Other (mild posterior crackles, wheezes and rhonchi.) Skin: Warm and Dry Neuro: Alert and Oriented X3 CV: RRR Critical Care Note Critical Care Note Total Critical Care Time (mins): 0 Course Course Hematology/Chemistry: 02/15/22 17:24 02/15/22 17:24 Orders, Labs, Meds: Lab Review 02/15/22 02/15/22 02/15/22 17:24 17:24 17:24 WBC 16.46 H RBC 4.16 L Hgb 12.7 Hct 36.4 L MCV 87.5 MCH 30.5 MCHC 34.9 RDW Coeff of Marcia 13.1 Plt Count 187 Immature Gran % (Auto) 0.7 Neut % (Auto) 79.7 H Lymph % (Auto) 10.0 [place] % (Auto) 8.0 Eos % (Auto) 1.3 Baso % (Auto) 0.3 Neut # (Auto) 13.1 H Lymph # (Auto) 1.6 [place] # (Auto) 1.3 Eos # (Auto) 0.2 Baso # (Auto) 0.1 Immature Gran # (Auto) 0.1 Puncture Site Base Excess O2 Saturation ABG pH ABG pCO2 ABG pO2 ABG HCO3 ABG Total CO2 Uvaldo Test Hemoglobin Oxyhemoglobin Carboxyhemoglobin Total Hemoglobin Oxygen Liter Flow FiO2 % Sodium 132.4 L Potassium 3.59 Chloride 99.4 Carbon Dioxide 23.7 Anion Gap 12.89 BUN 20.1 H Creatinine 0.97 Estimated GFR (MDRD) 55.00 BUN/Creatinine Ratio 20.72 Glucose 146.4 H Lactic Acid 1.24 Calcium 8.70 Total Bilirubin 0.66 AST 53.0 H ALT 18.5 Alkaline Phosphatase 127.2 Troponin I < 0.012 NT-Pro-B Natriuret Pep 260.000 Total Protein 7.17 Albumin 4.02 Globulin 3.15 Albumin/Globulin Ratio 1.27 Procalcitonin D-Dimer Urine Color Urine Clarity Urine pH Ur Specific [place] Urine Protein Urine Glucose (UA) Urine Ketones Urine Blood Urine Nitrite Urine Bilirubin Urine Urobilinogen Ur Leukocyte Esterase Urine Microscopic WBC Ur Squamous Epith Cells Urine Bacteria Adenovirus (PCR) B. pertussis DNA (PCR) B.parapertussis DNA PCR C. pneumoniae DNA (PCR) Coronavirus OC43 (PCR) Coronavirus HKU1 (PCR) Coronavirus 229E (PCR) Coronavirus NL63 (PCR) Human Metapneumovir PCR Influenza Type A (PCR) Influ A Molecular Assay Influenza B (RT-PCR) Influ B Molecular Assay M. pneumoniae (PCR) Parainfluenza 1 (PCR) Parainfluenza 2 (PCR) Parainfluenza 3 (PCR) Parainfluenza 4 (PCR) RSV (PCR) Entero/Rhino (PCR) SARS-CoV-2 (PCR) 02/15/22 02/15/22 02/15/22 17:24 17:30 18:30 WBC RBC Hgb Hct MCV MCH MCHC RDW Coeff of Marcia Plt Count Immature Gran % (Auto) Neut % (Auto) Lymph % (Auto) [place] % (Auto) Eos % (Auto) Baso % (Auto) Neut # (Auto) Lymph # (Auto) [place] # (Auto) Eos # (Auto) Baso # (Auto) Immature Gran # (Auto) Puncture Site Base Excess O2 Saturation ABG pH ABG pCO2 ABG pO2 ABG HCO3 ABG Total CO2 Uvaldo Test Hemoglobin Oxyhemoglobin Carboxyhemoglobin Total Hemoglobin Oxygen Liter Flow FiO2 % Sodium Potassium Chloride Carbon Dioxide Anion Gap BUN Creatinine Estimated GFR (MDRD) BUN/Creatinine Ratio Glucose Lactic Acid Calcium Total Bilirubin AST ALT Alkaline Phosphatase Troponin I NT-Pro-B Natriuret Pep Total Protein Albumin Globulin Albumin/Globulin Ratio Procalcitonin 0.14 H D-Dimer 1633.46 H Urine Color Urine Clarity Urine pH Ur Specific [place] Urine Protein Urine Glucose (UA) Urine Ketones Urine Blood Urine Nitrite Urine Bilirubin Urine Urobilinogen Ur Leukocyte Esterase Urine Microscopic WBC Ur Squamous Epith Cells Urine Bacteria Adenovirus (PCR) B. pertussis DNA (PCR) B.parapertussis DNA PCR C. pneumoniae DNA (PCR) Coronavirus OC43 (PCR) Coronavirus HKU1 (PCR) Coronavirus 229E (PCR) Coronavirus NL63 (PCR) Human Metapneumovir PCR Influenza Type A (PCR) Influ A Molecular Assay Negative by naat Influenza B (RT-PCR) Influ B Molecular Assay Negative by naat M. pneumoniae (PCR) Parainfluenza 1 (PCR) Parainfluenza 2 (PCR) Parainfluenza 3 (PCR) Parainfluenza 4 (PCR) RSV (PCR) Entero/Rhino (PCR) SARS-CoV-2 (PCR) 02/15/22 02/15/22 02/15/22 18:45 20:00 23:23 WBC RBC Hgb Hct MCV MCH MCHC RDW Coeff of Marcia Plt Count Immature Gran % (Auto) Neut % (Auto) Lymph % (Auto) [place] % (Auto) Eos % (Auto) Baso % (Auto) Neut # (Auto) Lymph # (Auto) [place] # (Auto) Eos # (Auto) Baso # (Auto) Immature Gran # (Auto) Puncture Site Rr Base Excess 1.1 O2 Saturation 95.4 ABG pH 7.48 H ABG pCO2 33.0 L ABG pO2 72.0 L ABG HCO3 24.6 ABG Total CO2 25.6 H Uvaldo Test + Hemoglobin 1.3 Oxyhemoglobin 93.3 L Carboxyhemoglobin 1.8 H Total Hemoglobin 12.7 Oxygen Liter Flow 2.00 FiO2 % 28.0 Sodium Potassium Chloride Carbon Dioxide Anion Gap BUN Creatinine Estimated GFR (MDRD) BUN/Creatinine Ratio Glucose Lactic Acid Calcium Total Bilirubin AST ALT Alkaline Phosphatase Troponin I NT-Pro-B Natriuret Pep Total Protein Albumin Globulin Albumin/Globulin Ratio Procalcitonin D-Dimer Urine Color Yellow Urine Clarity Clear Urine pH 5.5 Ur Specific [place] <=1.005 Urine Protein Negative Urine Glucose (UA) Negative Urine Ketones Negative Urine Blood Negative Urine Nitrite Negative Urine Bilirubin Negative Urine Urobilinogen 0.2 Ur Leukocyte Esterase Trace H Urine Microscopic WBC 0-2 Ur Squamous Epith Cells 5-10 Urine Bacteria Trace Adenovirus (PCR) Not detected B. pertussis DNA (PCR) Not detected B.parapertussis DNA PCR Not detected C. pneumoniae DNA (PCR) Not detected Coronavirus OC43 (PCR) Not detected Coronavirus HKU1 (PCR) Not detected Coronavirus 229E (PCR) Not detected Coronavirus NL63 (PCR) Not detected Human Metapneumovir PCR Not detected Influenza Type A (PCR) Not detected Influ A Molecular Assay Influenza B (RT-PCR) Not detected Influ B Molecular Assay M. pneumoniae (PCR) Not detected Parainfluenza 1 (PCR) Not detected Parainfluenza 2 (PCR) Not detected Parainfluenza 3 (PCR) Not detected Parainfluenza 4 (PCR) Not detected RSV (PCR) Not detected Entero/Rhino (PCR) Not detected SARS-CoV-2 (PCR) Not detected Orders Category Date Time Status ABG DRAW REQUEST Stat CARDIO 02/15/22 17:05 Completed EKG-(ED ONLY) Stat CARDIO 02/15/22 17:03 Completed OXYGEN Routine CARDIO 02/15/22 23:39 Active SPUTUM INDUCTION PRN CARDIO 02/15/22 23:45 Ordered ACTIVITY .BR with BRP CARE 02/15/22 23:40 Active GIVE HS SNACK 2100 CARE 02/15/22 23:40 Active INTAKE & OUTPUT Q8HR CARE 02/15/22 23:39 Active NPO REMINDER: IMAGING ONCE CARE 02/15/22 18:14 Completed REMINDER: Notify Provider if temp >101.5 PRN CARE 02/15/22 23:39 Active REMINDER:Breath Sounds&Sputum Production BID CARE 02/15/22 23:39 Active REMINDER:Notify Provider Pulse<60 or>130 PRN CARE 02/15/22 23:39 Active REMINDER:Notify if BP<90/60 or >170/110 PRN CARE 02/15/22 23:39 Active VITAL SIGNS Q8HR CARE 02/15/22 23:39 Active ADA 1800 BISI. DIET DIETARY 02/15/22 Breakfast Ordered HS SNACK DIETARY 02/15/22 Dinner Ordered Saline Lock [ED IV/MEDIPORT/POWERPORT] .ONCE EMERGENCY 02/15/22 17:03 Active ABG COOX PRN LAB 02/15/22 23:45 Ordered ABG COOX Stat LAB 02/15/22 18:45 Completed ABG COOX Stat LAB 02/15/22 23:39 Ordered BLOOD CULTURE (ED ONLY) Stat LAB 02/15/22 17:34 Received CBC W/ AUTO DIFF Stat LAB 02/15/22 17:24 Completed CBC W/ AUTO DIFF Stat LAB 02/16/22 06:00 Ordered COMPREHENSIVE METABOLIC PANEL Stat LAB 02/15/22 17:24 Completed D-DIMER Stat LAB 02/15/22 17:24 Completed FLU A & B MOLECULAR [FLU A/B MOLECULAR] Stat LAB 02/15/22 17:30 Completed GRAM STAIN Stat LAB 02/15/22 23:39 Ordered LACTIC ACID Stat LAB 02/15/22 17:24 Completed MOLECULAR GROUP A STREP Stat LAB 02/15/22 17:30 Completed NT-PROBNP Stat LAB 02/15/22 17:24 Completed PROCALCITONIN Stat LAB 02/15/22 18:30 Completed RESPIRATORY PANEL 2.1 (PCR) Stat LAB 02/15/22 20:00 Completed SPUTUM CULTURE Stat LAB 02/15/22 23:39 Uncollected TROPONIN I Stat LAB 02/15/22 17:24 Completed URINALYSIS C & S IF INDICATED Stat LAB 02/15/22 23:23 Completed 0.9 % Sodium Chloride [Saline Flush] MEDS 02/15/22 17:03 Active 1 syr IVF PRN PRN Azithromycin [Zithromax] MEDS 02/15/22 17:54 Discontinued 500 mg PO ONCE ONE Ceftriaxone/D5w 1 gm Premix [Rocephin 1 gm/50 ml D5w] MEDS 02/15/22 17:54 Discontinued 1 gm in 50 ml IV ONCE Ipratropium/Albuterol Neb [Duoneb] MEDS 02/15/22 17:03 Discontinued 3 ml NEB ONCE ONE Methylprednisolone Sod Succ/Pf [Solu-Medrol 125 mg] MEDS 02/15/22 17:03 Discontinued 125 mg IVP ONCE ONE Sodium Chloride 0.9% [Sodium Chloride] 1,000 ml MEDS 02/15/22 23:45 Active IV 30 mls/hr Sodium Chloride 0.9% [Sodium Chloride] 500 ml MEDS 02/15/22 17:03 Discontinued IV 125 mls/hr CT CHEST PE PROTOCOL Stat RADS 02/15/22 18:[address] CHEST W/O CONTRAST Stat RADS 02/15/22 17:03 Completed Medications Generic Name Dose Route Start Last Admin Trade Name Freq PRN Reason Stop Dose Admin Enoxaparin Sodium 40 mg 02/16/22 09:00 Enoxaparin Sodium 40 Mg/0.4 Ml Syr SUBCUT DAILY SARAH Sodium Chloride 1,000 mls @ 30 mls/hr 02/15/22 23:45 02/16/22 00:40 Sodium Chloride IV 30 mls/hr .[id number] SARAH Administration CEFTRIAXONE/D5W 1 GM PREMIX 1 gm in 50 mls @ 75 mls/hr 02/16/22 18:00 Rocephin 1 Gm/50 Ml D5w IV 02/19/22 17:59 1800 SARAH Azithromycin 500 mg/ Sodium 250 mls @ 125 mls/hr 02/16/22 18:00 Chloride IV 02/18/22 19:59 1800 SARAH Ipratropium [place] 2.5 ml 02/16/22 00:00 02/16/22 00:35 Ipratropium [place] 0.02% Vial.Neb NEB 2.5 ml RTQ6H SARAH Administration Lisinopril 10 mg 02/16/22 09:00 Lisinopril 10 Mg Tablet PO DAILY SARAH Omeprazole 20 mg 02/16/22 06:30 Omeprazole 20 Mg Capsule. PO QDAC SARAH Sodium Chloride 1 syr 02/15/22 17:03 0.9% Sodium Chloride 10 Ml Disp.Syrin IVF PRN PRN To flush IV Discontinued Medications Generic Name Dose Route Start Last Admin Trade Name Freq PRN Reason Stop Dose Admin Albuterol/Ipratropium 3 ml 02/15/22 17:03 02/15/22 18:28 Ipratropium/Albuterol Vial.Briseyda DE LEÓN 02/15/22 17:04 3 ml ONCE ONE Administration Azithromycin 500 mg 02/15/22 17:54 02/15/22 18:13 Azithromycin 250 Mg Tablet PO 02/15/22 17:55 500 mg ONCE ONE Administration Sodium Chloride 500 mls @ 125 mls/hr 02/15/22 17:03 02/15/22 22:01 Sodium Chloride IV 02/15/22 21:02 Not Given .Q4H STA CEFTRIAXONE/D5W 1 GM PREMIX 1 gm in 50 mls @ 75 mls/hr 02/15/22 17:54 02/15/22 18:13 Rocephin 1 Gm/50 Ml D5w IV 02/15/22 18:33 75 mls/hr ONCE ONE Administration Methylprednisolone Sodium Succinate 125 mg 02/15/22 17:03 03/19/22 17:20 Methylprednisolone Sod Succ/Pf 125 Mg/2 Ml Vial IVP 02/15/22 17:04 125 mg ONCE ONE Administration Vital Signs: Temp Pulse Resp BP Pulse Ox 02/15/22 16:22 99 F 76 19 148/78 H 89 L Discharge Plan Discharge Patient Disposition: ADMITTED INPATIENT Discharge Problem: Pneumonia ED Provider: ALDO ALCALA Condition: Good Physician Progress Note: []Pt was more comfortable in the ED. Pt was d/w Dr Ramírez who requested a d- dimer and CTA prior to admission to this hospital on his inpatient service. Pt was endorsed to Dr Alcala at 1900.
[2022-02-16] MEDS: SODIUM CHLORIDE 1,000 ML IV SCH (00:40)
[2022-02-16 05:22] LABS: BASOPHILS % (AUTO) 0.1 % (0.0-3.0); HEMOGLOBIN 12.5 g/dl (12.0-16.0); IMMATURE GRANULOCYTE # (AUTO) 0.1 (0.0-1.0); IMMATURE GRANULOCYTE % (AUTO) 0.8 % (0.0-5.0); LYMPHOCYTES % (AUTO) 7.4 (10.0-50.0); MEAN CORPUSCULAR HEMOGLOBIN 29.8 pg (27.0-31.0); MEAN CORPUSCULAR HGB CONC 33.8 (31.8-35.4); MEAN CORPUSCULAR VOLUME 88.3 fl (81.0-99.0); MONOCYTES # (AUTO) 0.2 K/uL (0.4-2.0); MONOCYTES % (AUTO) 1.3 (0-10); NEUTROPHILS # (AUTO) 12.7 K/ul (2.0-6.9); NEUTROPHILS % (AUTO) 90.4 % (42.2-75.2); PLATELET COUNT 190 10^3/uL (140-440); RED BLOOD COUNT 4.19 10^6/ul (4.20-5.40); WHITE BLOOD COUNT 14.03 K/ul (4.6-10.2)
[2022-02-16 05:36] LABS: ALANINE AMINOTRANSFERASE 18.9 U/L (0-35); ALBUMIN 3.86 g/dL (3.5-5.0); ALKALINE PHOSPHATASE 115.2 U/L (53-141); BILIRUBIN,TOTAL 0.47 mg/dL (0.2-1.3); BLOOD UREA NITROGEN 17.5 mg/dL (7-17); CALCIUM 8.68 mg/dL (8.4-10.2); CARBON DIOXIDE 25.4 mmol/L (22-30.0); CHLORIDE 101.4 mmol/L (98-107); CREATININE 0.68 mg/dL (0.60-1.30); GLUCOSE 238.5 mg/dL (74-106); POTASSIUM 3.71 mmol/L (3.5-5.1); SODIUM 133.8 mmol/L (134.5-145); TOTAL PROTEIN 6.89 g/dL (6.3-8.2)
[2022-02-16] MEDS: PRILOSEC PO SCH (05:46)
[2022-02-16 06:56] LABS: ABG PH 7.44 (7.35-7.45); BEecf 1.6 (-2.0-3.0); COHb 1.5 (0.5-1.5); HCO3 25.8 (21-28)
[2022-02-16 06:57] LABS: ABG O2 HGB 95.9 % (95-100); TCO2 27 (19-24); sO2 98.1 % (94-98); tHb 12.3 g/dl (11.7-17.4)
[2022-02-16] MEDS: ZESTRIL PO SCH (08:16)
[2022-02-16] MEDS: ROCEPHIN 1 GM/50 ML D5W 1 GM/50 ML BAG IV SCH (08:16)
[2022-02-16] MEDS: LOVENOX SUBCUT SCH (08:17)
[2022-02-16] MEDS: ZITHROMAX 500 MG in SODIUM CHLORIDE 250 ML IV SCH (09:49)
[2022-02-16] MEDS: DUONEB NEB SCH ×3 (11:38→23:02)
[2022-02-16] MEDS ORDERED: CEPACOL SORE THROAT LOZENGE MUCOUSMEMB PRN (12:02)
[2022-02-16] MEDS: HUMULIN R SUBCUT PRN ×3 (12:24→21:48)
[2022-02-16] MEDS: MEDROL DOSEPAK PO SCH ×3 (12:45→21:19)
[2022-02-17] MEDS: DUONEB NEB SCH ×4 (04:55→23:05)
[2022-02-17 05:37] LABS: BASOPHILS % (AUTO) 0.2 % (0.0-3.0); HEMATOCRIT 34.7 % (37.0-47.0); HEMOGLOBIN 11.6 g/dl (12.0-16.0); IMMATURE GRANULOCYTE # (AUTO) 0.2 (0.0-1.0); IMMATURE GRANULOCYTE % (AUTO) 1.1 % (0.0-5.0); LYMPHOCYTES # (AUTO) 1.4 K/uL (0.60-3.4); LYMPHOCYTES % (AUTO) 7.8 (10.0-50.0); MEAN CORPUSCULAR HEMOGLOBIN 29.9 pg (27.0-31.0); MEAN CORPUSCULAR HGB CONC 33.4 (31.8-35.4); MEAN CORPUSCULAR VOLUME 89.4 fl (81.0-99.0); MONOCYTES # (AUTO) 0.6 K/uL (0.4-2.0); NEUTROPHILS # (AUTO) 16.2 K/ul (2.0-6.9); NEUTROPHILS % (AUTO) 87.9 % (42.2-75.2); PLATELET COUNT 204 10^3/uL (140-440); RDW COEFFICIENT OF VARIATION 12.9 % (11.6-14.8); RED BLOOD COUNT 3.88 10^6/ul (4.20-5.40); WHITE BLOOD COUNT 18.38 K/ul (4.6-10.2)
[2022-02-17 05:50] LABS: ALANINE AMINOTRANSFERASE 20.6 U/L (0-35); ALBUMIN 3.47 g/dL (3.5-5.0); ASPARTATE AMINO TRANSFERASE 40.7 U/L (14-36); BILIRUBIN,TOTAL 0.33 mg/dL (0.2-1.3); BLOOD UREA NITROGEN 19.1 mg/dL (7-17); CALCIUM 8.58 mg/dL (8.4-10.2); CARBON DIOXIDE 27.4 mmol/L (22-30.0); CHLORIDE 102.9 mmol/L (98-107); CREATININE 0.62 mg/dL (0.60-1.30); POTASSIUM 3.97 mmol/L (3.5-5.1); SODIUM 134.9 mmol/L (134.5-145); TOTAL PROTEIN 6.31 g/dL (6.3-8.2)
[2022-02-17] MEDS: MEDROL DOSEPAK PO SCH ×4 (06:12→20:22)
[2022-02-17] MEDS: PRILOSEC PO SCH (06:12)
[2022-02-17] MEDS: HUMULIN R SUBCUT PRN ×3 (06:16→20:23)
[2022-02-17] MEDS: ROCEPHIN 1 GM/50 ML D5W 1 GM/50 ML BAG IV SCH (09:06)
[2022-02-17] MEDS: ZESTRIL PO SCH (10:06)
[2022-02-17] MEDS: LOVENOX SUBCUT SCH (10:07)
[2022-02-17] MEDS: ZITHROMAX 500 MG in SODIUM CHLORIDE 250 ML IV SCH (10:08)
[2022-02-17] MEDS: SODIUM CHLORIDE 1,000 ML IV SCH (10:10)
--- NOTE | 2022-02-17 10:29 | RS.BEDDYS ---
Subjective Date of Evaluation: 02/17/22 Date of Onset/Injury/Change in Status: 02/15/22 Diagnosis: Pneumonia Current Level of Function: This is a 77 year old female admitted for cough and SOB. She reported no hx of swallowing difficulty and does not wear oxygen in the home environment. The patient was diagnosed with pneumonia upon admission to ER and admitted. She is no currently receiving antibiotic treatment, breathing treatments, and receives oxygen via nasal cannula. At this time, HEAD HOUSEKEEPER will evaluate swallowing function to determine risks for penetration/aspiration and determine safer and least restrictive diet. Current Diet: Regular diet and thin liquids; medications whole with sips of water. Current Subjective/complaints:: The patient was sitting on EOB upon HEAD HOUSEKEEPER entry to room. The patient reported she has an inconsistent appetite and usually consumes 50-75% of her meals. The pt did not describe any concerns with food texture or liquid consistency. She reported current new pain in her left hip. The patient went on to report she has productive coughs and her breathing tx induce coughing episodes. Pt has minimal concerns with her diet/liquids however, agreeable to participate in swallow evaluation. General Information - General Denture Type: Not Applicable Patient Orientation: Person, Place, Time, Situation Ability to Follow Directions: Excellent Is Patient able to Repeat Directions?: Yes Oral Expression Ability: No Impairment - Voice Voice Quality: Normal Oral-Facial Assessment - Face Facial Symmetry: Symmetrical Facial Movement: Controlled - Dental/Labial Mouth Occlusion: Normal Teeth Characteristics: Intact/Normal Teeth Comment: Oral care routine was completed via pt independently with HEAD HOUSEKEEPER observation. Lip Protrusion: Normal Lip Retraction: Normal Puff Cheeks: Normal - Lingual Protrusion: Normal Retraction: Normal Tip Lateralization: Normal Repeated Tip Lateralization: Normal Tip Elevation: Normal Repeated Tip Elevation: Normal Food Presentation - Solids Food Presented: Regular (Biscuit softened with gravy) Behaviors/Comments: Pt independent with feeding. 1/2 tsp bite presented midline. Minimally prolonged mastication process observed with regular diet texture. Bolus formation and coordination was WFL. A-P transfer functional. Minimal oral stasis post swallow. No liquid wash utilized. No overt s/s of aspiration observed. - Liquids Liquid Presented: Thin (H20 via open cup) Behaviors/Comments: The pt took consecutive sips of thin H20 via open cup. Timely swallow initiation observed. Slightly decreased LE for airway protection. 1xmultiple swallow response with thin liquids. Clear voicing post swallow. No overt s/s of aspiration. No coughing episodes induced from pneumonia during PO trials. - Recommendations: Dysphagia Evaluation Dietary Recommendations: Regular, Thin Comments:: HEAD HOUSEKEEPER recommends continuation of regular diet texture and thin liquids. Pt's medications may be whole with sips of water. Present sips of water prior to pills to moisten oral/pharyngeal cavity. Dysphagia Swallow Precautions/Strategies: Sitting Upright (90 deg), Small Bites and Sips, Alternate Liquids/Solids Comments:: Encourage pt EOB or recliner for all PO intake; oral care routine prior to laying flat in bed and/or post breathing treatments. Encourage productive coughing with all cough responses; If coughing with PO intake, stop eating, [id number], resume PO intake after recovery from coughing episode. Do not eat if lethargic - Summary Dysphagia Evaluation Summary: The patient presented with minimal oral and pharyngeal phase swallow deficits. At this time, HEAD HOUSEKEEPER recommends pt continue regular diet and thin liquids with medications whole given sips of water. HEAD HOUSEKEEPER recommends speech therapy to address breath support/diaphragmatic breathing; diet monitoring with continued education on safe swallow/aspiration precautions. Further Therapy Indicated?: Yes Comments: Pt would benefit from continuation of safe swallow/aspiration precautions education and training; compensatory swallow strategies; diaphgramatic breathing exercises; and diet monitoring. Rehab Potential: Good Functional Reporting G Codes: n/a Severity Impairment Rationale: n/a Short Term Goals Problem: Safe swallow Goal #1: Pt tolerate regular diet/thin liquids w/ min to no overt s/s of aspiration Goal to be met by: 02/21/22 Problem: Safe swallow Goal #2: Pt demo safe swallow/aspiration precautions 100% of PO intake Goal to be met by: 02/21/22 Problem: Breath support Goal #3: Pt complete diaphragmatic breathing exercises on 100% of opportunities Goal to be met by: 02/21/22 Shelter Goals Goal #1: Pt tolerate safer and least restrictive diet w/o overt s/s of aspiration Goal to be met by: 02/21/22 Goal #2: Pt verb/demo diaphragmatic breathing exercises independently Goal to be met by: 02/21/22 Plan Duration of Treatment: 1 Week Frequency of Treatment: 3x/week Anticipated Discharge Destination: Home - Treatment Code (1) Dysphagia Code(s): R13.10 - Dysphagia, unspecified (2) Pneumonia Code(s): J18.9 - Pneumonia, unspecified organism
[2022-02-18] MEDS: DUONEB NEB SCH ×2 (04:55→11:06)
[2022-02-18 05:33] LABS: BASOPHILS # (AUTO) 0.1 K/uL (0-0.2); BASOPHILS % (AUTO) 0.4 % (0.0-3.0); HEMATOCRIT 35.6 % (37.0-47.0); HEMOGLOBIN 11.7 g/dl (12.0-16.0); IMMATURE GRANULOCYTE # (AUTO) 0.3 (0.0-1.0); IMMATURE GRANULOCYTE % (AUTO) 2.2 % (0.0-5.0); LYMPHOCYTES # (AUTO) 1.5 K/uL (0.60-3.4); LYMPHOCYTES % (AUTO) 11.6 (10.0-50.0); MEAN CORPUSCULAR HEMOGLOBIN 29.6 pg (27.0-31.0); MEAN CORPUSCULAR HGB CONC 32.9 (31.8-35.4); MEAN CORPUSCULAR VOLUME 90.1 fl (81.0-99.0); MONOCYTES # (AUTO) 0.5 K/uL (0.4-2.0); MONOCYTES % (AUTO) 3.8 (0-10); NEUTROPHILS # (AUTO) 10.6 K/ul (2.0-6.9); PLATELET COUNT 222 10^3/uL (140-440); RDW COEFFICIENT OF VARIATION 13.2 % (11.6-14.8); RED BLOOD COUNT 3.95 10^6/ul (4.20-5.40); WHITE BLOOD COUNT 12.86 K/ul (4.6-10.2)
[2022-02-18 05:48] LABS: BLOOD UREA NITROGEN 16.4 mg/dL (7-17); CALCIUM 8.44 mg/dL (8.4-10.2); CARBON DIOXIDE 28.6 mmol/L (22-30.0); CHLORIDE 105.5 mmol/L (98-107); CREATININE 0.59 mg/dL (0.60-1.30); POTASSIUM 3.9 mmol/L (3.5-5.1); SODIUM 137.3 mmol/L (134.5-145)
[2022-02-18] MEDS: PRILOSEC PO SCH (05:48)
[2022-02-18] MEDS: MEDROL DOSEPAK PO SCH ×2 (05:48→13:26)
[2022-02-18] MEDS: HUMULIN R SUBCUT PRN ×2 (06:19→11:58)
[2022-02-18] MEDS: LOVENOX SUBCUT SCH (09:14)
[2022-02-18] MEDS: ZESTRIL PO SCH (09:14)
[2022-02-18] MEDS: ROCEPHIN 1 GM/50 ML D5W 1 GM/50 ML BAG IV SCH (09:15)
--- NOTE | 2022-02-18 10:16 | CT ---
EXAM: CT abdomen pelvis with contrast HISTORY: Stomach pain COMPARISON: None TECHNIQUE: Serial axial images of the abdomen pelvis were performed after 79 mL is of Omnipaque IV c ontrast was administered. These were obtained from the lung bases through the inferior pelvis. FINDINGS: The lung bases demonstrate minimal atelectasis. The liver is unremarkable. The gallbladder is minimally distended. The adrenal glands. The are unr emarkable. There is a anterior right renal cyst. The left kidney is unremarkable. The spleen is no rmal. Pancreas is normal. The stomach is minimally distended. Small bowel in the abdomen and pelvis is unremarkable. The colon demonstrates diverticulosis without diverticulitis. Uterus is normal. Urinary bladder is partially distended. There is no free air, f ree fluid or lymphadenopathy. There is atherosclerotic disease. There is degenerative disease of th e spine. IMPRESSION: 1. No acute abnormality to account for patient's symptoms. 2. Right renal cyst. 3. Diverticulosis without diverticulitis. All CT scans are performed using dose optimization techniques as appropriate to the performed exam an d include at least one of the following: Automated exposure control, adjustment of the mA and/or kV according t o size, and the use of iterative reconstruction technique.
[2022-02-18 14:21] VITALS: BP 167/76; TEMP 97.3
== END 2022-02-18 16:15 | disposition home or self-care (01) | DRG 193 ==
LOC: ED 16:20 → MEDSURG A 23:43
PROVIDERS: ADMIT Family Medicine; ATTEND Family Medicine
DX: R74.8 Abnormal levels of other serum enzymes; Z51.81 Encounter for therapeutic drug level monitoring; D72.829 Elevated white blood cell count, unspecified; R13.10 Dysphagia, unspecified; Z79.01 Long term (current) use of anticoagulants; R79.89 Other specified abnormal findings of blood chemistry; R05.9 Cough, unspecified; R10.9 Unspecified abdominal pain; J96.01 Acute respiratory failure with hypoxia; J18.9 Pneumonia, unspecified organism; Z79.899 Other long term (current) drug therapy; Z20.822 Contact with and (suspected) exposure to COVID-19; R73.9 Hyperglycemia, unspecified